=== PATIENT | female | born 1965 | race African-American/Black ===

== ENCOUNTER 2017-06-19 05:49 | Emergency (ER) | payer OTHER ==
[~2017-06-19] VITALS: Ht 165.1 cm; Wt 77.1 kg
--- NOTE | ~2017-06-19 | EKG ---
[address] [address] ELECTROCARDIOGRAM REPORT Name: EMILY HOOD [id number] Admission: 06/19/17 Attend Phys: Discharge: Date of : 65 Report #: [id number] THIS REPORT FOR: //name// [facility] ED Test Date: 2017-06-19 Test Time: 05:58:29 Pat Name: EMILY HOOD Department: Room: Gender: F Tank Truck Operator: RAJIV : 1965 Requested By: Leland Dawson Order Number: [id number] MD: Denis Ojeda Measurements Intervals [place] Rate: 75 P: 37 RI: 167 QRS: 8 QRSD: 87 T: 30 QT: 384 QTc: 429 Interpretive Statements Sinus rhythm Borderline T wave abnormalities No previous ECG available for comparison Electronically Signed On 06-19-2017 7:48:52 TUMBLING AND ROLLING SUPERVISOR by Denis Ojeda [email or web address] <ELECTRONICALLY SIGNED> By: Denis Ojeda MD 06/19/17 0748 0558 0558 Denis Ojeda MD /EPI
[2017-06-19] MEDS ORDERED: BENICAR40 MG PO (06:02)
[2017-06-19] MEDS ORDERED: PROTONIX 20 MG20 M1 PO (06:02)
[2017-06-19] MEDS ORDERED: MULTIVITAMINS1 EAC7 PO (06:02)
[2017-06-19] MEDS ORDERED: IBUPROFEN 200200 M1 PO (06:03)
[2017-06-19] MEDS ORDERED: LORAZEPAM 22 MG/1 ML PO (06:03)
[2017-06-19] MEDS ORDERED: ACCUNEB SO1.25 MG/1 (06:04)
[2017-06-19 06:25] LABS: BASOPHILS 0.6 % (0.0-2.0); EOSINOPHILS 3.4 % (0.0-3.0); HEMATOCRIT 42.5 % (37.0-47.0); HEMOGLOBIN 14.9 gm/dL (12.0-15.0); LYMPHOCYTES 28.1 % (24.0-44.0); MCH 31.9 pg (26.0-34.0); MCHC 35.1 g/dL (28.0-37.0); MCV 90.8 fL (80.0-100.0); MONOCYTES 9.3 % (1.0-8.0); PLATELET COUNT 236 thou/uL (150-400); POLYS 58.6 % (36.0-66.0); RBC 4.68 mil/uL (4.20-5.00); RDW 13.4 % (10.5-14.5); WBC 8.6 thou/uL (4.0-11.0)
[2017-06-19 06:32] LABS: ANION GAP 10 mmol/L (7-16); BUN 15 mg/dL (7-18); CALCIUM 9.8 mg/dL (8.5-10.1); CHLORIDE 104 mmol/L (98-107); CO2 26 mmol/L (21-32); CREATININE 0.9 mg/dL (0.6-1.0); GLUCOSE 111 mg/dL (74-106); POTASSIUM 3.4 mmol/L (3.5-5.1); SODIUM 140 mmol/L (136-145)
[2017-06-19 06:41] LABS: ALBUMIN 4.2 g/dL (3.4-5.0); DIRECT BILIRUBIN 0.1 mg/dL (<0.1-0.3); LIPASE 103 U/L (73-393); SGOT 18 U/L (15-37); SGPT 36 U/L (30-65); TOTAL BILIRUBIN 0.7 mg/dL (<0.1-1.0); TOTAL PROTEIN 7.6 g/dL (6.4-8.2); TROPONIN-I < 0.04 ng/mL (<0.06)
[2017-06-19 09:11] VITALS: BP 126/76
== END 2017-06-19 09:15 | disposition home or self-care (01) ==
LOC: ER 05:49
PROVIDERS: Emergency Medicine
DX: R07.89 Other chest pain (principal); R19.7 Diarrhea, unspecified; I10 Essential (primary) hypertension; J45.909 Unspecified asthma, uncomplicated; F17.210 Nicotine dependence, cigarettes, uncomplicated; Z88.5 Allergy status to narcotic agent

== ENCOUNTER 2017-07-06 09:22 | Inpatient (IN) | payer BC ==
[~2017-07-06] VITALS: Ht 165.1 cm; Wt 85.7 kg
--- NOTE | ~2017-07-06 | HC ---
[facility] [place] [address] [place] [address] CONSULTATION Name: EMILY HOOD Room #: 205-P ADM IN M.R.#: [id number] Admission: 07/06/17 Attend Phys: Sandra Silva Discharge: Date of : 65 Report #: [id number] THIS REPORT FOR: //name// CC: FAM unknown Sandra Silva REASON FOR CONSULTATION: I was asked to evaluate concerning persistent fever, cough and pulmonary infiltrates. HISTORY OF PRESENT ILLNESS: The patient is a 51-year-old with underlying history of hypertension, asthma. She is a smoker of cigarettes. 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 Six days ago developed acute onset of fever, chills, headache, myalgias, arthralgias and cough. Later associated this with nausea, vomiting and diarrhea. Presents on 07/06/2017 with the above complaints. In addition, had some chest pain, paresthesias to her left arm and leg. She has had fever up to 102 degrees. Cough has been minimally productive. Oxygen saturation on 3 liters has been in the high 80s. She has been receiving breathing treatments. She was placed on ceftriaxone and metronidazole. Yesterday was placed on Tamiflu. Her coworkers have been without specific illness. Her has been without illness. She had no travel outside the [place]. No animal exposure. Influenza vaccination up to date. PAST MEDICAL HISTORY: Asthma, hypertension, hysterectomy with oophorectomy, anxiety, lumbar spine surgery. ALLERGIES: CODEINE. MEDICATIONS: As noted on her MAR. She was on Benicar, Protonix, multivitamin, ibuprofen, lorazepam and albuterol prior to her admission. Subsequently, she has been on metronidazole for 1 day, ceftriaxone and now Tamiflu. FAMILY HISTORY: Noncontributory. SOCIAL HISTORY: Smoker of cigarettes, minimal alcohol intake, no HIV risks. No tuberculosis exposure noted. 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 REVIEW OF SYSTEMS: No rash, arthritis symptoms. Her headache has improved. Paresthesias are improved. No further diarrhea. Appetite has been fair. No dysuria or frequency. PHYSICAL EXAMINATION: VITAL SIGNS: She had maximum temperature earlier today of 39.6, currently afebrile, hemodynamically stable. Oxygen saturation on 3 liters was 88%. GENERAL: She is alert and cooperative. A bit weak when trying to sit up in bed. SKIN: Unremarkable. [facility] [address] [place] [address] CONSULTATION Name: EMILY HOOD Room #: 205-P [facility] IN M.R.#: [id number] Admission: 07/06/17 Attend Phys: Sandra Berger Estephania Discharge: Date of : 65 Report #: [id number] LYMPH: Unremarkable. HEENT: Unremarkable. NECK: Supple. She was fatigued in appearance. LUNGS: A few crackles in the right mid posterior chest. HEART: Regular, without murmur. ABDOMEN: Soft. She had mild tenderness in their upper abdomen bilaterally. No mass or hepatosplenomegaly. EXTREMITIES: Unremarkable. NEUROLOGIC: Nonfocal. LABORATORY STUDIES: Sodium 143, potassium 3.6, bicarbonate 29, creatinine 0.9. Liver function test normal. Drug screen ____ benzodiazepines and opiates. Hemoglobin 14.4, platelet count 236,000, white count 7.9 with 51% segs, 36% lymphs, 6% monocytes and 4% eosinophils. Urinalysis was unremarkable. Urine culture did show E. coli pansensitive. Influenza antigen was negative. Blood cultures were negative to date. Initial chest x-ray was clear. A repeat CT scan yesterday showed right middle lobe infiltrate and some associated adenopathy. CT scan on admission was unremarkable. MRI scan of the head was unremarkable. IMPRESSION: A 51-year-old with underlying asthma with acute febrile illness. A right middle lobe pneumonia. I suspect influenza at the onset. Has bacterial pneumonia at this time. Exacerbation of her asthma. PLAN: Would recommend continuing Tamiflu and broaden her antibiotic coverage to include Staph aureus and atypicals. She will have viral respiratory panel obtained, sputum culture, urine antigens, HIV testing. In addition, we will continue with respiratory treatments and add prednisone. <ELECTRONICALLY SIGNED> By: Manuel Gutierrez MD 07/10/17 1808 0907 1137 Manuel Gutierrez MD /nt
--- NOTE | ~2017-07-06 | EKG ---
[address] [place] [address] ELECTROCARDIOGRAM REPORT Name: EMILY HOOD Room #: 205-P ADM IN M.R.#: [id number] Admission: 07/06/17 Attend Phys: Sandra Silva Discharge: Date of : 65 Report #: [id number] THIS REPORT FOR: //name// [facility] Test Date: 2017-07-06 Test Time: 18:38:42 Pat Name: EMILY HOOD Department: Room: 205 P Gender: F Kitchen Supervisor: Leonardo MALIK : 1965 Requested By: Debbie Wolff Order Number: [id number] MD: Solitario Rudolph Measurements Intervals [place] Rate: 62 P: 47 VT: 177 QRS: 22 QRSD: 91 T: 39 QT: 423 QTc: 430 Interpretive Statements Sinus rhythm No significant abnormality Compared to ECG 06/19/2017 05:58:29 T-wave abnormality no longer present Electronically Signed On 07-09-2017 7:17:34 INFORMATION DEVELOPER by Solitario Rudolph [email or web address] <ELECTRONICALLY SIGNED> By: Solitario Rudolph MD, [facility] 07/09/17 0717 37 37 Solitario Rudolph MD, [facility] /EPI
--- NOTE | ~2017-07-06 | HC ---
[facility] [place] [address] [place] [address] CONSULTATION Name: EMILY HOOD Room #: 205-P ADM IN M.R.#: [id number] Admission: 07/06/17 Attend Phys: Sandra Silva Discharge: Date of : 65 Report #: [id number] THIS REPORT FOR: //name// CC: FAM unknown Sandra Silva TYPE OF REPORT: Pulmonary consultation. PRIMARY CARE PHYSICIAN: At [facility]. REFERRAL PHYSICIAN: Lucie Christianson M.D. REASON FOR REFERRAL: Hypoxia. HISTORY OF PRESENT ILLNESS: The patient is a 51-year-old white female who was admitted on 07/06/2017 with complaints of abdominal pain, weakness, atypical chest pain. She was subsequently found to have influenza. She has asthma. Over the last several days, she has been more hypoxic. A pulmonary consultation was requested. The patient states that she has not seen a polysomnograph tech in the past. She has been getting her care at [facility]. She states that she has been told that she had asthma for some time. Her main complaint today is that she just quite weak and short of breath. Otherwise, denies any chest pain, nausea, vomiting or diarrhea. In reviewing the records, she appears to be being on her Valium for her anxiety disorder. She is on Valium 10 mg 3 times a day. PAST MEDICAL HISTORY: Notable for asthma, hypertension, tobacco abuse, smoking less than a pack a day. PAST SURGICAL HISTORY: Include left oophorectomy due to hemorrhage and right oophorectomy recently. ALLERGIES: CODEINE, which causes hives. CURRENT MEDICATIONS: Lists are reviewed in the MAR. FAMILY HISTORY: Noncontributory. SOCIAL HISTORY: Tobacco history: As mentioned above. She drinks occasional alcohol. 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 REVIEW OF SYSTEMS: Notable for profound weakness and dyspnea. Otherwise, 10-point system review negative. [facility] [address] [place] [address] CONSULTATION Name: EMILY HOOD Room #: 205-P [facility] IN .R.#: [id number] Admission: 07/06/17 Attend Phys: Sandra Silva Discharge: Date of : 65 Report #: [id number] PHYSICAL EXAMINATION: GENERAL: She is awake, alert, appears to be in mild distress due to weakness. VITAL SIGNS: Temperature is 98.7 degrees Fahrenheit, pulse is 60, respiratory rate is 18, blood pressure is 150/64 mmHg and saturation is 94%. HEENT: Normocephalic and atraumatic. NECK: Supple, without any lymphadenopathy or thyromegaly. CHEST: Breath sounds are decreased bilaterally with idfx-ql-wraxfohs bilateral wheezes. Few scattered crackles heard in the bases. CARDIOVASCULAR: Normal S1 and S2. There are no murmurs or gallop. There is no JVD. There is no carotid bruit. Pulses are 2+/4+ bilaterally. ABDOMEN: Soft and nontender. No organomegaly or masses felt. She is moderately obese. GENITOURINARY: Deferred. RECTAL: Deferred. EXTREMITIES: There is no edema, cyanosis or clubbing. RADIOLOGICAL DATA: Chest x-ray was grossly unremarkable except for questionable left lower lobe infiltrates. LABORATORY DATA: Electrolytes are normal. Liver function tests are normal. WBC 7800, hemoglobin 12.9 and platelets are normal. No evidence of bandemia. IMPRESSION: 1. Progressive hypoxia in this 51-year-old -[place] female. Etiology is probably related to exacerbation of chronic obstructive pulmonary disease with possible pneumonia. 2. Influenza A. 3. Profound weakness due to above. There is likely a component to her dyspnea and hypoxia. 4. Tobacco abuse. 5. Atypical chest pain related to influenza. Some of this may be related to exacerbation of asthma. RECOMMENDATION: We would suggest increasing the corticosteroids. Continue bronchodilators. Continue antibiotics per Infectious Disease. DVT and GI prophylaxis will be addressed. Note that recent CT chest angiogram performed on 07/08/2017 was negative for pulmonary embolus. There were focal infiltrates seen in the right middle lobe with mildly enlarged paratracheal lymph nodes. Thank you for this consultation. <ELECTRONICALLY SIGNED> By: Musa Garay MD 07/14/17 1941 1747 0123 Musa Garay MD /nt
--- NOTE | ~2017-07-06 | EKG ---
[address] [place] [address] ELECTROCARDIOGRAM REPORT Name: EMILY HOOD Room #: 205-P ADM IN M.R.#: [id number] Admission: 07/06/17 Attend Phys: Sandra Silva Discharge: Date of : 65 Report #: [id number] THIS REPORT FOR: //name// [facility] ED Test Date: 2017-07-06 Test Time: 09:17:20 Pat Name: EMILY HOOD Department: Room: 205 Gender: F Filler Blender: [facility] : 1965 Requested By: Sandra Silva Order Number: [id number] MD: Solitario Rudolph Measurements Intervals [place] Rate: 82 P: 48 AR: 158 QRS: 14 QRSD: 91 T: 54 QT: 379 QTc: 443 Interpretive Statements Sinus rhythm Nonspecific ST and T wave abnormality Compared to ECG 06/19/2017 05:58:29 No significant changes Electronically Signed On 07-09-2017 7:12:20 QUALITY ENGINEER MEDICAL DEVICE by Solitario Rudolph [email or web address] <ELECTRONICALLY SIGNED> By: Solitario Rudolph MD, [facility] 07/09/17711 6 6 Solitario Rudolph MD, [facility] /EPI
--- NOTE | ~2017-07-06 | D ---
[facility] [place] [address] [place] [address] DISCHARGE SUMMARY Name: EMILY HOOD Room #: 205-P [facility] IN M.R.#: [id number] Admission: 07/06/17 Attend Phys: Sandra Silva Discharge: 07/16/17 Date of : 65 Report #: [id number] THIS REPORT FOR: //name// CC: FAM unknown Sandra Silva DATE OF SERVICE: 07/16/2017 The patient was admitted to the hospital on 07/06/2017, discharged from the hospital on 07/16/2017. HISTORY OF PRESENT ILLNESS: The patient is a 51-year-old female with history of COPD, who came to the hospital with midsternal chest pain and progressively worsening shortness of breath. The patient has history of asthma, as well as she is current smoker. Please refer to admission H and P for details. HOSPITALIZATION COURSE: The patient was hospitalized for atypical chest pain, asthma, suspected asthma exacerbation. Later during the hospital stay, the patient developed fever and myalgias. Influenza was suspected. Although initial test was negative, later diagnosis was confirmed. Infectious Disease was involved, and the patient was treated with Tamiflu. The patient also had chest CT scan that showed bilateral infiltrates. The patient has been treated with antibiotics. Her condition improved significantly, but later during the hospital stay she became hypoxic again. She required supplemental oxygen. Outside Plant Field Engineer was consulted. Steroid dose was increased, and the patient was treated with more aggressive bronchodilator regimen. The patient's condition improved. Currently, the patient is on room air. The patient also had other issues as well. Initially, the patient reported left arm weakness on admission. MRI of the brain was negative and Neurology evaluated the patient. Weakness has resolved, neurologist has signed off. She also had diarrhea on admission that has resolved. Urinalysis was consistent with E. coli that has been covered with Rocephin that the patient was getting. The patient also had aches and pains, requiring narcotics, which was related to cough and myalgias. Currently, the patient is on room air. She has mild wheezing. As noted, the patient has asthma, as well as she is a current smoker. She is not short of breath. The patient will be discharged home. She is strongly advised to quit smoking cigarettes. She will be discharged home on oral antibiotics. She is currently on cefdinir per ID recommendations. That will be continued. DISCHARGE DIAGNOSES: 1. Influenza A, completed Tamiflu. [address] [address] DISCHARGE SUMMARY Name: EMILY HOOD Room #: 205-P DIS IN M.R.#: [id number] Admission: 07/06/17 Attend Phys: Sandra Silva Discharge: 07/16/17 Date of : 65 Report #: [id number] 2. Bilateral pneumonia, resolving. 3. Hypoxemic respiratory failure due to above, resolved. 4. Asthma/chronic obstructive pulmonary disease exacerbation, resolved. 5. Tobaccoism. 6. Pleuritic chest pain and abdominal muscle pain due to cough, resolved. 7. Urinary tract infection due to Escherichia coli, treated with Rocephin. 8. Left arm weakness on admission, resolved. Negative MRI of the brain and negative neurologic evaluation. 9. Tobaccoism. 10. Hypertension. 11. Left hip pain during the admission. No abnormalities on the x-ray. The patient likely has degenerative joint disease. DISPOSITION: The patient is discharged home. FOLLOWUP PLAN: Follow up with the primary care physician in 1 week. I spent greater than 30 minutes to coordinate the patient's discharge from the hospital. <ELECTRONICALLY SIGNED> By: Lucie Christianson MD 07/16/17 1906 0925 0948 Lucie Christianson MD /nt
[~2017-07-06 09:22] MED LIST: ACCUNEB SO1.25 MG/1; BENICAR40 MG PO; IBUPROFEN 200200 M1 PO; LORAZEPAM 22 MG/1 ML PO; MULTIVITAMINS1 EAC7 PO; PROTONIX 20 MG20 M1 PO
[2017-07-06 09:34] LABS: ABSOLUTE NEUTROPHILS 4.1 thou/uL (1.4-8.2); BASOPHILS 0.7 % (0.0-2.0); EOSINOPHILS 4.1 % (0.0-3.0); HEMATOCRIT 41.5 % (37.0-47.0); HEMOGLOBIN 14.4 gm/dL (12.0-15.0); LYMPHOCYTES 36.6 % (24.0-44.0); MCH 31.5 pg (26.0-34.0); MCHC 34.8 g/dL (28.0-37.0); MCV 90.4 fL (80.0-100.0); MONOCYTES 6.7 % (1.0-8.0); PLATELET COUNT 236 thou/uL (150-400); POLYS 51.9 % (36.0-66.0); RBC 4.59 mil/uL (4.20-5.00); RDW 12.8 % (10.5-14.5); WBC 7.9 thou/uL (4.0-11.0)
[2017-07-06 09:41] VITALS: BP 140/84
[2017-07-06 09:41] LABS: ANION GAP 9 mmol/L (7-16); BUN 13 mg/dL (7-18); CHLORIDE 105 mmol/L (98-107); CO2 29 mmol/L (21-32); CREATININE 0.9 mg/dL (0.6-1.0); GLUCOSE 113 mg/dL (74-106); POTASSIUM 3.6 mmol/L (3.5-5.1); SODIUM 143 mmol/L (136-145)
[2017-07-06 09:50] LABS: ALBUMIN 4.2 g/dL (3.4-5.0); SGOT 23 U/L (15-37); SGPT 37 U/L (30-65); TOTAL BILIRUBIN 0.7 mg/dL (<0.1-1.0); TOTAL PROTEIN 7.5 g/dL (6.4-8.2); TROPONIN-I < 0.04 ng/mL (<0.06)
[2017-07-06 11:32] VITALS: BP 140/84
[2017-07-06 11:58] VITALS: BP 154/55
[2017-07-06 12:18] VITALS: BP 150/82
[2017-07-06 13:23] LABS: CHOLESTEROL 205 mg/dL (<200); HDL CHOLESTEROL 34 mg/dL (>40); LDL CHOLESTEROL 113 mg/dL (<100); TRIGLYCERIDE 293 mg/dL (<150); VLDL 59 mg/dL (<40)
[2017-07-06 13:49] LABS: TSH 1.004 uIU/mL (0.358-3.740)
[2017-07-06 16:17] LABS: URINE BILIRUBIN NEGATIVE (Negative); URINE BLOOD TRACE (Negative); URINE CLARITY CLEAR; URINE COLOR YELLOW; URINE GLUCOSE-RANDOM* NEGATIVE (Negative); URINE KETONES NEGATIVE (Negative); URINE LEUKOCYTES NEGATIVE (Negative); URINE NITRITE POSITIVE (Negative); URINE PROTEIN (DIPSTICK) NEGATIVE (Negative); URINE UROBILINOGEN 0.2 E.U./dl (0.2-1.0)
[2017-07-06 16:23] LABS: BACTERIA 1-9 Few /HPF (None Seen); CASTS None Seen /LPF (None Seen); SQUAMOUS 0-3 Few /LPF (0-3); URINE RBC 0-2 Rare /HPF (0-2); URINE WBC None Seen /HPF (0-5)
[2017-07-06 16:24] LABS: CRYSTALS None Seen /LPF (None Seen)
[2017-07-06 16:26] LABS: AMP/METHAMP Negative (Negative); BARBITURATES Negative (Negative); BENZODIAZEPINES POSITIVE (Negative); COCAINE Negative (Negative); METHADONE Negative (Negative); OPIATES POSITIVE (Negative); PCP Negative (Negative)
[2017-07-06 19:41] VITALS: BP 129/75
[2017-07-07 05:35] VITALS: BP 101/53
[2017-07-07 08:00] VITALS: BP 123/68
[2017-07-07 16:00] VITALS: BP 140/65
[2017-07-07 19:41] VITALS: BP 150/68
[2017-07-08 04:45] VITALS: BP 150/76
[2017-07-08 08:45] VITALS: BP 186/89
[2017-07-08 14:33] VITALS: BP 173/82
[2017-07-08 19:46] VITALS: BP 152/88
[2017-07-08 23:29] VITALS: BP 137/74
[2017-07-09 03:20] VITALS: BP 157/85
[2017-07-09 07:44] VITALS: BP 160/80
[2017-07-09 15:16] LABS: ABSOLUTE NEUTROPHILS 4.1 thou/uL (1.4-8.2); BASOPHILS 0.1 % (0.0-2.0); EOSINOPHILS 0.1 % (0.0-3.0); HEMATOCRIT 38.2 % (37.0-47.0); HEMOGLOBIN 13.3 gm/dL (12.0-15.0); LYMPHOCYTES 10.2 % (24.0-44.0); MCH 31.4 pg (26.0-34.0); MCHC 34.7 g/dL (28.0-37.0); MCV 90.4 fL (80.0-100.0); MONOCYTES 4.6 % (1.0-8.0); PLATELET COUNT 148 thou/uL (150-400); RBC 4.22 mil/uL (4.20-5.00); RDW 12.5 % (10.5-14.5); WBC 4.9 thou/uL (4.0-11.0)
[2017-07-09 15:23] LABS: CALCIUM 9.2 mg/dL (8.5-10.1); MAGNESIUM 2.1 mg/dL (1.8-2.4)
[2017-07-09 16:00] VITALS: BP 157/82
[2017-07-09 19:35] VITALS: BP 147/86
[2017-07-10 03:52] VITALS: BP 152/93
[2017-07-10 08:57] VITALS: BP 136/64
[2017-07-10 10:08] LABS: HIV ANTIBODY Non Reactive (Non Reactive)
[2017-07-10 12:00] VITALS: BP 152/83
[2017-07-10 15:58] VITALS: BP 142/67
[2017-07-10 19:27] VITALS: BP 154/83
[2017-07-11 03:53] VITALS: BP 181/97
[2017-07-11 08:00] VITALS: BP 168/88
[2017-07-11 12:00] VITALS: BP 181/83
[2017-07-11 16:00] VITALS: BP 166/91
[2017-07-11 20:15] VITALS: BP 173/82
[2017-07-12 00:41] VITALS: BP 143/93
[2017-07-12 01:06] LABS: ADENOVIRUS Negative (Negative); INFLUENZA A Positive (Negative); INFLUENZA B Negative (Negative); METAPNEUMOVIRUS Negative (Negative); PARAINFLUENZA 1 Negative (Negative); PARAINFLUENZA 2 Negative (Negative); PARAINFLUENZA 3 Negative (Negative); RHINOVIRUS Negative (Negative); RSV A Negative (Negative); RSV B Negative (Negative)
[2017-07-12 05:50] VITALS: BP 153/77
[2017-07-12 07:33] VITALS: BP 171/88
[2017-07-12 15:50] VITALS: BP 171/89
[2017-07-12 17:38] VITALS: BP 165/79
[2017-07-12 20:07] VITALS: BP 154/82
[2017-07-13 04:46] LABS: ABSOLUTE NEUTROPHILS 6.5 thou/uL (1.4-8.2); BASOPHILS 0.1 % (0.0-2.0); HEMATOCRIT 37.3 % (37.0-47.0); HEMOGLOBIN 12.9 gm/dL (12.0-15.0); LYMPHOCYTES 12.1 % (24.0-44.0); MCH 31.4 pg (26.0-34.0); MCHC 34.5 g/dL (28.0-37.0); MCV 90.9 fL (80.0-100.0); MONOCYTES 4.8 % (1.0-8.0); PLATELET COUNT 171 thou/uL (150-400); RBC 4.11 mil/uL (4.20-5.00); WBC 7.8 thou/uL (4.0-11.0)
[2017-07-13 04:57] VITALS: BP 160/85
[2017-07-13 05:12] LABS: CALCIUM 9.2 mg/dL (8.5-10.1); CREATININE 0.8 mg/dL (0.6-1.0)
[2017-07-13 07:41] VITALS: BP 167/84
[2017-07-13 13:40] VITALS: BP 119/57
[2017-07-13 16:46] VITALS: BP 150/64
[2017-07-13 21:40] VITALS: BP 166/77
[2017-07-14 04:21] VITALS: BP 179/99
[2017-07-14 05:51] LABS: ABSOLUTE NEUTROPHILS 9.7 thou/uL (1.4-8.2); BASOPHILS 0.1 % (0.0-2.0); HEMATOCRIT 38.1 % (37.0-47.0); HEMOGLOBIN 12.9 gm/dL (12.0-15.0); LYMPHOCYTES 9.5 % (24.0-44.0); MCHC 33.9 g/dL (28.0-37.0); MCV 91.5 fL (80.0-100.0); MONOCYTES 3.5 % (1.0-8.0); PLATELET COUNT 198 thou/uL (150-400); POLYS 86.9 % (36.0-66.0); RBC 4.16 mil/uL (4.20-5.00); RDW 12.6 % (10.5-14.5); WBC 11.2 thou/uL (4.0-11.0)
[2017-07-14 06:06] LABS: CALCIUM 9.1 mg/dL (8.5-10.1); CREATININE 0.9 mg/dL (0.6-1.0)
[2017-07-14 08:21] VITALS: BP 188/87
[2017-07-14 15:14] VITALS: BP 176/87
[2017-07-14 20:10] VITALS: BP 179/78
[2017-07-15 04:24] VITALS: BP 165/79
[2017-07-15 05:03] LABS: HEMATOCRIT 37.2 % (37.0-47.0); HEMOGLOBIN 12.6 gm/dL (12.0-15.0); MCH 30.8 pg (26.0-34.0); MCV 90.7 fL (80.0-100.0); RBC 4.1 mil/uL (4.20-5.00); RDW 12.5 % (10.5-14.5); WBC 11.8 thou/uL (4.0-11.0)
[2017-07-15 05:16] LABS: CREATININE 0.8 mg/dL (0.6-1.0); PHOSPHORUS 3.3 mg/dL (2.5-4.9); POTASSIUM 3.6 mmol/L (3.5-5.1)
[2017-07-15 08:45] VITALS: BP 180/89
[2017-07-15 11:10] VITALS: BP 149/85
[2017-07-15 15:55] VITALS: BP 142/71
[2017-07-15 20:00] VITALS: BP 150/77
[2017-07-16 03:58] VITALS: BP 155/81
[2017-07-16 04:18] LABS: HEMATOCRIT 35.9 % (37.0-47.0); HEMOGLOBIN 12.3 gm/dL (12.0-15.0); MCH 31.6 pg (26.0-34.0); MCHC 34.3 g/dL (28.0-37.0); MCV 91.9 fL (80.0-100.0); RBC 3.91 mil/uL (4.20-5.00); RDW 12.8 % (10.5-14.5); WBC 9.5 thou/uL (4.0-11.0)
[2017-07-16 04:35] LABS: ALBUMIN 2.8 g/dL (3.4-5.0); CALCIUM 8.5 mg/dL (8.5-10.1); CREATININE 0.9 mg/dL (0.6-1.0); POTASSIUM 3.4 mmol/L (3.5-5.1); TOTAL BILIRUBIN 0.4 mg/dL (<0.1-1.0); TOTAL PROTEIN 5.9 g/dL (6.4-8.2)
[2017-07-16 08:00] VITALS: BP 141/72
[2017-07-16] MEDS ORDERED: CEFDINIR300 MG PO (09:31)
[2017-07-16] MEDS ORDERED: PREDNISONE 10 M10 MG PO (09:31)
[2017-07-16] MEDS ORDERED: ONDANSETRON HCL4 M2 PO (09:31)
[2017-07-16] MEDS ORDERED: ATIVAN0.5 MG PO (09:31)
[2017-07-16] MEDS ORDERED: NORCO 7.5-3251 EACH PO (09:31)
[2017-07-16] MEDS ORDERED: BENZONATATE100 MG PO (09:31)
[2017-07-16] MEDS ORDERED: SINGULAIR 10 MG10 M1 PO (09:31)
[2017-07-16 14:30] VITALS: BP 141/72
[2017-07-16] MEDS ORDERED: PREDNISONE 20 M20 MG PO (14:45)
== END 2017-07-16 15:15 | disposition home or self-care (01) | DRG 193 ==
LOC: ER 09:22 → 2N 10:56 → EROBS 10:56 → 2N 12:01 → ENTRNSPT 07-16 15:08 → EDTRNSPTSTS 07-16 15:11 → 2N 07-16 15:15
PROVIDERS: Hospitalist; Internal Medicine Endocrinology, Diabetes & Metabolism; Internal Medicine Pulmonary Disease; Nurse Practitioner; Physician Assistant; Specialist
PROC: 05HY33Z Insertion of Infusion Device into Upper Vein, Percutaneous Approach (ICD-10-PCS; principal; 2017-07-09)
DX: J10.08 Influenza due to other identified influenza virus with other specified pneumonia (principal); J96.01 Acute respiratory failure with hypoxia; N39.0 Urinary tract infection, site not specified; A04.72 Enterocolitis due to Clostridium difficile, not specified as recurrent; J15.9 Unspecified bacterial pneumonia; I10 Essential (primary) hypertension; J45.901 Unspecified asthma with (acute) exacerbation; E78.00 Pure hypercholesterolemia, unspecified; M25.552 Pain in left hip; J44.0 Chronic obstructive pulmonary disease with (acute) lower respiratory infection; J44.1 Chronic obstructive pulmonary disease with (acute) exacerbation; E66.09 Other obesity due to excess calories; F41.9 Anxiety disorder, unspecified; F44.9 Dissociative and conversion disorder, unspecified; B96.20 Unspecified Escherichia coli [E. coli] as the cause of diseases classified elsewhere; F17.210 Nicotine dependence, cigarettes, uncomplicated; Z68.31 Body mass index [BMI] 31.0-31.9, adult; Z71.6 Tobacco abuse counseling; Z90.710 Acquired absence of both cervix and uterus; Z90.722 Acquired absence of ovaries, bilateral; Z79.899 Other long term (current) drug therapy; Z88.5 Allergy status to narcotic agent
CPT/HCPCS: 10081; 27000

== ENCOUNTER 2017-07-21 08:04 | Emergency (ER) | payer BC ==
[~2017-07-21] VITALS: Ht 165.1 cm; Wt 79.4 kg
--- NOTE | ~2017-07-21 | EKG ---
[place] [address] [facility] [place] [address] ELECTROCARDIOGRAM REPORT Name: EMILY HOOD Room #: DEP Dora#: [id number] Admission: 07/21/17 Attend Phys: Discharge: 07/21/17 Date of : 65 Report #: [id number] THIS REPORT FOR: //name// [facility] ED Test Date: 2017-07-21 Test Time: 09:55:08 Pat Name: EMILY HOOD Department: Room: Gender: F Veterans' Counselor: Aram HANKS : 1965 Requested By: Danny Del Valle Order Number: [id number] MD: Henry Gibbs Measurements Intervals [place] Rate: 59 P: 44 [place]: 152 QRS: 7 QRSD: 87 T: 48 QT: 407 QTc: 404 Interpretive Statements Sinus rhythm Borderline T wave abnormalities Compared to ECG 07/06/2017 18:38:42 T-wave abnormality now present Electronically Signed On 07-21-2017 12:26:17 LANDSCAPE CREW MEMBER by Henry Gibbs [email or web address] <ELECTRONICALLY SIGNED> By: Henry Gibbs MD 07/21/17 1226 0955 0955 Henry Gibbs MD /EDVIN
[~2017-07-21 08:04] MED LIST changes: +ATIVAN0.5 MG PO; +BENZONATATE100 MG PO; +CEFDINIR300 MG PO; +NORCO 7.5-3251 EACH PO; +ONDANSETRON HCL4 M2 PO; +PREDNISONE 10 M10 MG PO; +PREDNISONE 20 M20 MG PO; +SINGULAIR 10 MG10 M1 PO
[2017-07-21] MEDS ORDERED: TRAZODONE 150150 M1 PO (09:00)
[2017-07-21] MEDS ORDERED: HYDROCHLOROTH12.5 M1 PO (09:01)
[2017-07-21 09:46] LABS: HEMATOCRIT 40.8 % (37.0-47.0); HEMOGLOBIN 14.2 gm/dL (12.0-15.0); MCH 31.4 pg (26.0-34.0); MCHC 34.8 g/dL (28.0-37.0); MCV 90.1 fL (80.0-100.0); RBC 4.53 mil/uL (4.20-5.00); RDW 12.7 % (10.5-14.5); WBC 8.8 thou/uL (4.0-11.0)
[2017-07-21 09:52] LABS: ANION GAP 8 mmol/L (7-16); BUN 12 mg/dL (7-18); CALCIUM 9.9 mg/dL (8.5-10.1); CHLORIDE 107 mmol/L (98-107); CO2 27 mmol/L (21-32); CREATININE 0.9 mg/dL (0.6-1.0); GLUCOSE 105 mg/dL (74-106); POTASSIUM 3.9 mmol/L (3.5-5.1); SODIUM 142 mmol/L (136-145)
[2017-07-21 09:57] LABS: ALBUMIN 3.8 g/dL (3.4-5.0); SGOT 18 U/L (15-37); SGPT 58 U/L (30-65); TOTAL BILIRUBIN 0.5 mg/dL (<0.1-1.0); TOTAL PROTEIN 7.4 g/dL (6.4-8.2); TROPONIN-I < 0.04 ng/mL (<0.06)
[2017-07-21 11:36] VITALS: BP 121/67
== END 2017-07-21 11:36 | disposition home or self-care (01) ==
LOC: ER 08:04
PROVIDERS: Emergency Medicine
DX: J98.8 Other specified respiratory disorders (principal); I10 Essential (primary) hypertension; J45.909 Unspecified asthma, uncomplicated; F17.210 Nicotine dependence, cigarettes, uncomplicated; Z88.5 Allergy status to narcotic agent

== ENCOUNTER 2017-07-25 09:59 | Inpatient (IN) | payer BC ==
[~2017-07-25] VITALS: Ht 167.6 cm
--- NOTE | ~2017-07-25 | HC ---
[facility] [place] [address] [address] CONSULTATION Name: EMILY HOOD Room #: 356-P ADM IN M.R.#: [id number] Admission: 07/25/17 Attend Phys: Boubacar Hutchison DO Discharge: Date of : 65 Report #: [id number] THIS REPORT FOR: //name// CC: Boubacar De Santiagorobe Ontiveroson DATE OF SERVICE: 07/25/2017 HISTORY OF PRESENT ILLNESS: This is a 51-year-old female patient who was seen by me at the request of Dr. Castellano from Emergency Room. This patient was admitted with weakness on the left side. Her symptoms were pretty unusual. We reviewed the records from the hospital and it looks like she was seen by Dr. Ortiz and her conclusion was that the patient had a conversion disorder. This was on 07/07/2017. She did have workup of that time and workup did include an MRI of the brain and MRA of the head and they were unremarkable. REVIEW OF SYSTEMS: Indicate that this patient indicates that she has been vomiting blood every day. She is having syncopal episode of significant amount of vomiting blood every day as per history. She is also complaining of some chest symptoms. The patient had a history of C. difficile. She also has been on multiple psychiatric medications and at one time was seen by psychiatrist and those records were reviewed. Presently, she is complaining of a lot of chest pain, which is retrosternal. She is also complaining of pain in the head, which is generalized. She did have hysterectomy in the past. That was the relevant 14-point review of system. PAST MEDICAL HISTORY: Positive for diagnosis of conversion disorder. Negative, neurology workup. FAMILY HISTORY: Negative for early age stroke. SOCIAL HISTORY: She smokes. PHYSICAL EXAMINATION: The patient was examined multiple times. She is alert. She is responsive. She moves her eyes in all directions. When I asked her to give me a big smile, she is able to move both sides of the face. She would not move the left upper and left lower extremity on command. When she is distracted, she was moving the left arm. When I put her left arm on the face, she will never hit it on the face and she will bring it back on her body or take it above the head and hit it there. Her reflexes are symmetrical. This examination was confirmed multiple times. She did have a noncontrast CT of the head, which was unremarkable. Plan was to do a CT angio, but the patient's creatinine is 3.1. [place] [address] CONSULTATION Name: EMILY HOOD Room #: 356-P [facility] IN M.R.#: [id number] Admission: 07/25/17 Attend Phys: Boubacar Hutchison DO Discharge: Date of : 65 Report #: [id number] IMPRESSION AND PLAN: I had multiple discussions with the patient as well as with Dr. Castellano. Since she has a history of multiple episodes of GI bleed in the last few days, which has not been worked up, she has a diagnosis of conversion disorder with negative workup in similar circumstances and her deficit does not fit into any definite anatomical location and has multiple features, which will tend to indicate that it is a functional. TPA was not given, although it was ordered. I did discuss with the patient her options in that regard and she is agreeable with this plan. She is very scared. She will go for an MRI and MRA again. If MRI and MRA show anything different, then we will treat accordingly. Otherwise this MRI and MRA was ordered stat and we will see what does that show. This is a very difficult patient and was discussed. Multiple times and I talked to the patient and talked to Dr. Castellano and after that we decided to follow the above plan. Thank you very much for this referral. This addendum is being added at the time of signing this note. Patient was reevaluated by me this afternoon and her examination is unchanged. I talked to admitting doctor. I talked to the nurses looking after this patient. I talked to the radiologist section repairer and she indicated that the strokes this patient had was old and there is no evidence of any new stroke. She indicated it's a chronic process. I discussed the situation with the patient. I discussed her options again. We will get an EEG done. I think she need a psychiatric consult again because she is very nervous. More than 50 minutes of time was spent taking care of this patient today and majority of that time was spent counseling this patient and coordinating her care <ELECTRONICALLY SIGNED> By: Roberto Gonzalez MD 07/25/17 1759 1123 1718 Roberto Gonzalez MD /nt
--- NOTE | ~2017-07-25 | EEG ---
[facility] [place] [address] ELECTROENCEPHALOGRAM Name: EMILY HOOD Room #: 356-P [facility] IN M.R.#: [id number] Admission: 07/25/17 Attend Phys: Boubacar Hutchison DO Discharge: 07/26/17 Date of : 65 Report #: [id number] THIS REPORT FOR: //name// CC: Boubacar De Santiagorobe Anderson DATE OF SERVICE: 07/26/2017 This patient is being evaluated for pretty unusual symptoms. EEG is being done to look for any asymmetry or seizure. Background activity in this patient's EEG is about 11 Hz and 40 microvolt. No suppression on the right side was noticed. The patient became drowsy that is associated with bilateral slowing and vertex sharp waves. Photic stimulation is unremarkable. Throughout the record, no active epileptiform activity was noticed. IMPRESSION: This patient's electroencephalogram is within normal limits. Thank you very much for this referral. <ELECTRONICALLY SIGNED> By: Roberto Gonzalez MD 08/04/17 1552 1425 1438 Roberto Gonzalez MD /nt
--- NOTE | ~2017-07-25 | EKG ---
[address] [place] [address] ELECTROCARDIOGRAM REPORT Name: EMILY HOOD Room #: 356-P ADM IN M.R.#: [id number] Admission: 07/25/17 Attend Phys: Boubacar Hutchison DO Discharge: Date of : 65 Report #: [id number] THIS REPORT FOR: //name// [facility] Test Date: 2017-07-25 Test Time: 16:26:27 Pat Name: EMILY HOOD Department: Room: 356 P Gender: F Buckle Inspector: Leonardo MALIK : 1965 Requested By: Boubacar Hutchison Order Number: [id number] MD: Solitario Rudolph Measurements Intervals [place] Rate: 62 P: 44 [place]: 164 QRS: 10 QRSD: 92 T: 37 QT: 415 QTc: 422 Interpretive Statements Sinus rhythm Nonspecific T wave abnormality Compared to ECG 07/21/2017 09:55:08 No significant change was found Electronically Signed On 07-26-2017 8:11:08 ASTRONOMY INSTRUCTOR by Solitario Rudolph [email or web address] <ELECTRONICALLY SIGNED> By: Solitario Rudolph MD, [facility] 07/26/17 0811 1626 25 Solitario Rudolph MD, [facility] /EPI
--- NOTE | ~2017-07-25 | EKG ---
[place] [address] [address] [facility] [place] [employer] [place] [address] ELECTROCARDIOGRAM REPORT Name: EMILY HOOD Room #: 356-P ADM IN M.R.#: [id number] Admission: 07/25/17 Attend Phys: Boubacar Hutchison DO Discharge: Date of : 65 Report #: [id number] THIS REPORT FOR: //name// [facility] ED Test Date: 2017-07-25 Test Time: 10:27:04 Pat Name: EMILY HOOD Department: Room: 356 Gender: F Brew House Supervisor: BRIANDA : 1965 Requested By: aLcy Castellano Order Number: [id number] MD: Solitario Rudolph Measurements Intervals [place] Rate: 88 P: 61 MS: 151 QRS: 40 QRSD: 90 T: 73 QT: 444 QTc: 538 Interpretive Statements Sinus rhythm Nonspecific ST and T wave abnormality Prolonged QT interval Compared to ECG 07/21/2017 09:55:08 No significant change was found Electronically Signed On 07-26-2017 8:02:58 SECRETARY BOOK KEEPER by Solitario Rudolph [email or web address] <ELECTRONICALLY SIGNED> By: Solitario Rudolph MD, [facility] 07/26/17 0802 Solitario Rudolph MD, [facility] /EPI
[2017-07-25 09:59] VITALS: BP 75/48
[~2017-07-25 09:59] MED LIST changes: +HYDROCHLOROTH12.5 M1 PO; +TRAZODONE 150150 M1 PO
[2017-07-25 10:13] LABS: BASOPHILS 0.4 % (0.0-2.0); EOSINOPHILS 1.1 % (0.0-3.0); HEMATOCRIT 40.5 % (37.0-47.0); HEMOGLOBIN 14.3 gm/dL (12.0-15.0); LYMPHOCYTES 36.9 % (24.0-44.0); MCH 31.5 pg (26.0-34.0); MCHC 35.4 g/dL (28.0-37.0); MCV 89.2 fL (80.0-100.0); MONOCYTES 9.5 % (1.0-8.0); PLATELET COUNT 276 thou/uL (150-400); POLYS 52.1 % (36.0-66.0); RBC 4.55 mil/uL (4.20-5.00); RDW 12.4 % (10.5-14.5); WBC 9.7 thou/uL (4.0-11.0)
[2017-07-25 10:17] LABS: POC CA IONIZED 3.8 mg/dL (4.5-5.3); POC CREATININE 3.1 mg/dL (0.6-1.3); POC HEMOGLOBIN 13.9 g/dL (12.0-15.0); POC POTASSIUM 5.3 mmol/L (3.5-5.1)
[2017-07-25 10:26] LABS: CALCIUM 9.9 mg/dL (8.5-10.1); CREATININE 3.1 mg/dL (0.6-1.0); POTASSIUM 3.2 mmol/L (3.5-5.1)
[2017-07-25 10:27] LABS: APTT 27.7 Seconds (24.5-32.8); INR 1.1; PROTIME 10.8 Seconds (9.3-11.4)
[2017-07-25 10:32] LABS: POC CREATININE 3.1 mg/dL (0.6-1.3); POC HEMOGLOBIN 13.6 g/dL (12.0-15.0); POC POTASSIUM 3.1 mmol/L (3.5-5.1)
[2017-07-25 14:09] VITALS: BP 108/66
[2017-07-25 20:30] VITALS: BP 107/65
[2017-07-25] MEDS ORDERED: ATIVAN1 MG PO (21:35)
[2017-07-25 23:20] VITALS: BP 116/51
[2017-07-26 05:15] VITALS: BP 105/60
[2017-07-26 07:06] VITALS: BP 111/68
[2017-07-26 10:01] LABS: ABSOLUTE NEUTROPHILS 1.7 thou/uL (1.4-8.2); BASOPHILS 0.6 % (0.0-2.0); EOSINOPHILS 2.6 % (0.0-3.0); HEMATOCRIT 35.8 % (37.0-47.0); HEMOGLOBIN 12.3 gm/dL (12.0-15.0); LYMPHOCYTES 50.5 % (24.0-44.0); MCH 31.4 pg (26.0-34.0); MCHC 34.3 g/dL (28.0-37.0); MCV 91.4 fL (80.0-100.0); PLATELET COUNT 185 thou/uL (150-400); POLYS 37.3 % (36.0-66.0); RBC 3.91 mil/uL (4.20-5.00); RDW 12.5 % (10.5-14.5); WBC 4.7 thou/uL (4.0-11.0)
[2017-07-26 10:19] LABS: ANION GAP 8 mmol/L (7-16); BUN 10 mg/dL (7-18); CALCIUM 9.1 mg/dL (8.5-10.1); CHLORIDE 112 mmol/L (98-107); CO2 24 mmol/L (21-32); GLUCOSE 79 mg/dL (74-106); POTASSIUM 3.8 mmol/L (3.5-5.1); SODIUM 144 mmol/L (136-145); TROPONIN-I < 0.04 ng/mL (<0.06)
[2017-07-26 10:20] LABS: CREATININE 1.1 mg/dL (0.6-1.0)
[2017-07-26] MEDS ORDERED: DIAZEPAM 10 MG10 M1 PO (18:21)
[2017-07-26] MEDS ORDERED: WORK EXCUSE (18:23)
[2017-07-26 18:34] VITALS: BP 111/68
== END 2017-07-26 18:55 | disposition home or self-care (01) | DRG 880 ==
LOC: ER 09:59 → EROBS 10:50 → 3W 10:50
PROVIDERS: Emergency Medicine; Family Medicine
DX: F44.4 Conversion disorder with motor symptom or deficit (principal); N17.9 Acute kidney failure, unspecified; I10 Essential (primary) hypertension; J45.909 Unspecified asthma, uncomplicated; F17.210 Nicotine dependence, cigarettes, uncomplicated; R07.9 Chest pain, unspecified; F41.9 Anxiety disorder, unspecified; Z88.6 Allergy status to analgesic agent
CPT/HCPCS: 10779

== ENCOUNTER → 2017-07-30 | Outpatient (CLI) | payer BC ==
[~2017-07-30] MED LIST changes: +ATIVAN1 MG PO; +BENTYL 20 MG TA20 M1 PO; +BUTALB-APAP-CA1 EACH PO; +CHILDREN'S ASPI81 M1 PO; +COLACE100 MG PO; +COZAAR 25 MG TA25 M1 PO; +DIAZEPAM 10 MG10 M1 PO; +DIAZEPAM 10 MG10 M2 PO; +FLEXERIL PO; +MOBIC15 MG PO; +NORCO 5-325 TA1 EACH PO; +OXYCODONE HCL 55 MG PO; +TOPROL XL25 MG PO; +VALIUM5 MG PO; +VENTOLIN HFA 1818 GM INH; +WORK EXCUSE; +ZOFRAN ODT4 MG PO
[2017-07-30 17:06] LABS: CALCIUM 10.4 mg/dL (8.5-10.1); POTASSIUM 3.5 mmol/L (3.5-5.1)
== END ==
LOC: LABMALL 16:38
PROVIDERS: Family Medicine
DX: N17.9 Acute kidney failure, unspecified (principal)

== ENCOUNTER 2017-08-02 11:13 | Emergency (ER) | payer BC ==
[~2017-08-02] VITALS: Ht 165.1 cm; Wt 76.2 kg
[~2017-08-02 11:13] MED LIST changes: -BENTYL 20 MG TA20 M1 PO; -BUTALB-APAP-CA1 EACH PO; -CHILDREN'S ASPI81 M1 PO; -COLACE100 MG PO; -COZAAR 25 MG TA25 M1 PO; -DIAZEPAM 10 MG10 M2 PO; -FLEXERIL PO; -MOBIC15 MG PO; -NORCO 5-325 TA1 EACH PO; -OXYCODONE HCL 55 MG PO; -TOPROL XL25 MG PO; -VALIUM5 MG PO; -VENTOLIN HFA 1818 GM INH; -ZOFRAN ODT4 MG PO
[2017-08-02 12:46] LABS: CALCIUM 9.7 mg/dL (8.5-10.1); POTASSIUM 3.3 mmol/L (3.5-5.1)
[2017-08-02 12:48] LABS: ABSOLUTE NEUTROPHILS 2.3 thou/uL (1.4-8.2); BASOPHILS 0.6 % (0.0-2.0); EOSINOPHILS 5.6 % (0.0-3.0); HEMATOCRIT 37.4 % (37.0-47.0); LYMPHOCYTES 35.1 % (24.0-44.0); MCH 31.1 pg (26.0-34.0); MCHC 34.7 g/dL (28.0-37.0); MCV 89.6 fL (80.0-100.0); MONOCYTES 11.6 % (1.0-8.0); PLATELET COUNT 198 thou/uL (150-400); POLYS 47.1 % (36.0-66.0); RBC 4.17 mil/uL (4.20-5.00); RDW 12.8 % (10.5-14.5)
[2017-08-02 12:55] LABS: DIRECT BILIRUBIN 0.1 mg/dL (<0.1-0.3); TOTAL BILIRUBIN 0.7 mg/dL (<0.1-1.0); TOTAL PROTEIN 7.3 g/dL (6.4-8.2)
[2017-08-02] MEDS ORDERED: ZOFRAN ODT4 MG PO (13:58)
[2017-08-02] MEDS ORDERED: BENTYL 20 MG TA20 M1 PO (13:58)
[2017-08-02 14:09] VITALS: BP 137/79
[2017-08-02 14:20] LABS: URINE BILIRUBIN NEGATIVE (Negative); URINE BLOOD TRACE (Negative); URINE CLARITY CLEAR; URINE COLOR YELLOW; URINE GLUCOSE-RANDOM* NEGATIVE (Negative); URINE KETONES NEGATIVE (Negative); URINE LEUKOCYTES-REFLEX NEGATIVE (Negative); URINE NITRITE-REFLEX NEGATIVE (Negative); URINE PROTEIN (DIPSTICK) NEGATIVE (Negative); URINE SPECIFIC GRAVITY >= 1.030 (1.005-1.035); URINE UROBILINOGEN 0.2 E.U./dl (0.2-1.0)
== END 2017-08-02 14:43 | disposition home or self-care (01) ==
LOC: ER 11:13
PROVIDERS: Emergency Medicine
DX: R10.11 Right upper quadrant pain (principal); R11.2 Nausea with vomiting, unspecified; M54.2 Cervicalgia; J45.909 Unspecified asthma, uncomplicated; I10 Essential (primary) hypertension; Z88.5 Allergy status to narcotic agent; F17.210 Nicotine dependence, cigarettes, uncomplicated

== ENCOUNTER 2017-09-19 07:34 | Emergency (ER) | payer OTHER, BC ==
[~2017-09-19] VITALS: Ht 165.1 cm; Wt 72.6 kg
[~2017-09-19 07:34] MED LIST changes: +BENTYL 20 MG TA20 M1 PO; +ZOFRAN ODT4 MG PO
[2017-09-19] MEDS ORDERED: VENTOLIN HFA 1818 GM INH (07:45)
[2017-09-19] MEDS ORDERED: MOBIC15 MG PO (09:41)
[2017-09-19] MEDS ORDERED: VALIUM5 MG PO (09:41)
[2017-09-19] MEDS ORDERED: NORCO 5-325 TA1 EACH PO (09:41)
== END 2017-09-19 10:44 | disposition home or self-care (01) ==
LOC: ER 07:34
DX: S29.012A Strain of muscle and tendon of back wall of thorax, initial encounter (principal); M54.14 Radiculopathy, thoracic region; I10 Essential (primary) hypertension; J45.909 Unspecified asthma, uncomplicated; Z90.722 Acquired absence of ovaries, bilateral; F17.210 Nicotine dependence, cigarettes, uncomplicated; Z88.5 Allergy status to narcotic agent; W03.XXXA Other fall on same level due to collision with another person, initial encounter; Y93.89 Activity, other specified; Y92.89 Other specified places as the place of occurrence of the external cause; Y99.8 Other external cause status

== ENCOUNTER 2017-10-30 09:03 | Emergency (ER) | payer OTHER ==
[~2017-10-30] VITALS: Ht 165.1 cm; Wt 71.2 kg
--- NOTE | ~2017-10-30 | EKG ---
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
[~2017-10-30 09:03] MED LIST changes: +MOBIC15 MG PO; +NORCO 5-325 TA1 EACH PO; +VALIUM5 MG PO; +VENTOLIN HFA 1818 GM INH
[2017-10-30] MEDS ORDERED: CHILDREN'S ASPI81 M1 PO (09:14)
[2017-10-30] MEDS ORDERED: OXYCODONE HCL 55 MG PO (09:15)
[2017-10-30 09:58] LABS: BASOPHILS 0.3 % (0.0-2.0); HEMATOCRIT 39.7 % (37.0-47.0); HEMOGLOBIN 14.1 gm/dL (12.0-15.0); LYMPHOCYTES 28.9 % (24.0-44.0); MCH 30.9 pg (26.0-34.0); MCHC 35.5 g/dL (28.0-37.0); MONOCYTES 9.2 % (1.0-8.0); PLATELET COUNT 194 thou/uL (150-400); POLYS 58.6 % (36.0-66.0); RBC 4.57 mil/uL (4.20-5.00); RDW 13.2 % (10.5-14.5); WBC 6.8 thou/uL (4.0-11.0)
[2017-10-30 10:10] LABS: ANION GAP 10 mmol/L (7-16); BUN 14 mg/dL (7-18); CALCIUM 9.8 mg/dL (8.5-10.1); CHLORIDE 106 mmol/L (98-107); CO2 26 mmol/L (21-32); CREATININE 0.8 mg/dL (0.6-1.0); GLUCOSE 98 mg/dL (74-106); POTASSIUM 3.3 mmol/L (3.5-5.1); SODIUM 142 mmol/L (136-145)
[2017-10-30 10:19] LABS: ALBUMIN 3.9 g/dL (3.4-5.0); SGOT 16 U/L (15-37); SGPT 31 U/L (30-65); TOTAL BILIRUBIN 0.8 mg/dL (<0.1-1.0); TOTAL PROTEIN 7.6 g/dL (6.4-8.2); TROPONIN-I < 0.04 ng/mL (<0.06)
[2017-10-30] MEDS ORDERED: TOPROL XL25 MG PO (12:19)
[2017-10-30] MEDS ORDERED: BUTALB-APAP-CA1 EACH PO (12:20)
== END 2017-10-30 12:35 | disposition home or self-care (01) ==
LOC: ER 09:03
PROVIDERS: Physician Assistant
DX: R07.9 Chest pain, unspecified (principal); R51 Headache; R42 Dizziness and giddiness; J45.909 Unspecified asthma, uncomplicated; I10 Essential (primary) hypertension; F17.210 Nicotine dependence, cigarettes, uncomplicated; Z90.722 Acquired absence of ovaries, bilateral; Z88.5 Allergy status to narcotic agent

== ENCOUNTER 2017-12-26 11:23 | Emergency (ER) | payer OTHER ==
[~2017-12-26] VITALS: Ht 165.1 cm; Wt 70.3 kg
[~2017-12-26 11:23] MED LIST changes: +BUTALB-APAP-CA1 EACH PO; +CHILDREN'S ASPI81 M1 PO; +OXYCODONE HCL 55 MG PO; +TOPROL XL25 MG PO
[2017-12-26] MEDS ORDERED: COZAAR 25 MG TA25 M1 PO (11:33)
[2017-12-26] MEDS ORDERED: COLACE100 MG PO (11:36)
[2017-12-26] MEDS ORDERED: DIAZEPAM 10 MG10 M2 PO (11:37)
[2017-12-26 11:59] LABS: URINE BILIRUBIN NEGATIVE (Negative); URINE BLOOD NEGATIVE (Negative); URINE CLARITY CLEAR; URINE COLOR YELLOW; URINE GLUCOSE-RANDOM* NEGATIVE (Negative); URINE KETONES NEGATIVE (Negative); URINE LEUKOCYTES-REFLEX NEGATIVE (Negative); URINE NITRITE-REFLEX NEGATIVE (Negative); URINE PROTEIN (DIPSTICK) NEGATIVE (Negative); URINE UROBILINOGEN 0.2 E.U./dl (0.2-1.0)
[2017-12-26] MEDS ORDERED: FLEXERIL PO (12:48)
[2017-12-26] MEDS ORDERED: OXYCODONE HCL 55 MG PO (12:48)
== END 2017-12-26 13:00 | disposition home or self-care (01) ==
LOC: ER 11:23
PROVIDERS: Student in an Organized Health Care Education/Training Program
DX: M54.41 Lumbago with sciatica, right side (principal); R32 Unspecified urinary incontinence; J45.909 Unspecified asthma, uncomplicated; I10 Essential (primary) hypertension; F17.210 Nicotine dependence, cigarettes, uncomplicated; Z88.5 Allergy status to narcotic agent; Z90.722 Acquired absence of ovaries, bilateral

== ENCOUNTER 2018-08-13 10:58 | Emergency (ER) | payer OTHER ==
[~2018-08-13] VITALS: Ht 165.1 cm; Wt 74.8 kg
[~2018-08-13 10:58] MED LIST changes: +COLACE100 MG PO; +COZAAR 25 MG TA25 M1 PO; +DIAZEPAM 10 MG10 M2 PO; +FLEXERIL PO
[2018-08-13 11:19] LABS: URINE BILIRUBIN NEGATIVE (Negative); URINE BLOOD NEGATIVE (Negative); URINE CLARITY CLEAR; URINE COLOR YELLOW; URINE GLUCOSE-RANDOM* NEGATIVE (Negative); URINE KETONES NEGATIVE (Negative); URINE LEUKOCYTES-REFLEX NEGATIVE (Negative); URINE NITRITE-REFLEX NEGATIVE (Negative); URINE PROTEIN (DIPSTICK) NEGATIVE (Negative); URINE SPECIFIC GRAVITY >= 1.030 (1.005-1.035); URINE UROBILINOGEN 0.2 E.U./dl (0.2-1.0)
[2018-08-13] MEDS ORDERED: MIRALAX17 GM PO (11:20)
[2018-08-13 12:03] LABS: ABSOLUTE NEUTROPHILS 3.5 thou/uL (1.4-8.2); BASOPHILS 0.4 % (0.0-2.0); EOSINOPHILS 2.5 % (0.0-3.0); HEMATOCRIT 36.6 % (37.0-47.0); MCH 31.5 pg (26.0-34.0); MCHC 35.7 g/dL (28.0-37.0); MCV 88.2 fL (80.0-100.0); PLATELET COUNT 208 thou/uL (150-400); POLYS 49.1 % (36.0-66.0); RBC 4.15 mil/uL (4.20-5.00); RDW 13.2 % (10.5-14.5)
[2018-08-13 12:11] LABS: CALCIUM 9.3 mg/dL (8.5-10.1); CREATININE 0.8 mg/dL (0.6-1.0); POTASSIUM 3.5 mmol/L (3.5-5.1)
[2018-08-13 12:17] LABS: ALBUMIN 4.2 g/dL (3.4-5.0); TOTAL BILIRUBIN 0.6 mg/dL (<0.1-1.0); TOTAL PROTEIN 7.4 g/dL (6.4-8.2)
[2018-08-13] MEDS ORDERED: BENTYL 20 MG TA20 M1 PO (14:27)
[2018-08-13] MEDS ORDERED: MOBIC15 MG PO (14:27)
[2018-08-13 14:29] VITALS: BP 135/71
--- NOTE | 2018-08-14 16:59 | EKG ---
[address] [address] [facility] [place] [address] ELECTROCARDIOGRAM REPORT Name: EMILY HOOD 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 : 1965 Requested By: Davina Escamilla Order Number: [id number] MD: Solitario Rudolph Measurements Intervals [place] Rate: 52 P: 44 SC: 181 QRS: 21 QRSD: 87 T: 56 QT: 428 QTc: 398 Interpretive Statements Sinus rhythm Borderline T wave abnormalities Compared to ECG 10/30/2017 09:12:48 T-wave abnormality now present Electronically Signed On 08-14-2018 16:59:04 CDT by Solitario Rudolph [email or web address] ��������������������������������������������� <ELECTRONICALLY SIGNED> ���������������������������������������� By: Solitario Rudolph MD, [facility] ��������������������������������������������� 08/14/18 1659 1404 1404 Solitario Rudolph MD, FACC /EPI
== END 2018-08-13 14:34 | disposition home or self-care (01) ==
LOC: ER 10:58
PROVIDERS: Physician Assistant
DX: R10.11 Right upper quadrant pain (principal); R11.2 Nausea with vomiting, unspecified; J45.909 Unspecified asthma, uncomplicated; I10 Essential (primary) hypertension; F17.210 Nicotine dependence, cigarettes, uncomplicated; Z88.5 Allergy status to narcotic agent

== ENCOUNTER 2019-01-31 05:17 | Emergency (ER) | payer OTHER ==
[~2019-01-31] VITALS: Ht 165.1 cm; Wt 74.8 kg
[~2019-01-31 05:17] MED LIST changes: +MIRALAX17 GM PO
[2019-01-31 06:04] LABS: ABSOLUTE NEUTROPHILS 2.9 thou/uL (1.4-8.2); BASOPHILS 0.5 % (0.0-2.0); HEMATOCRIT 40.6 % (37.0-47.0); HEMOGLOBIN 13.8 gm/dL (12.0-15.0); LYMPHOCYTES 36.4 % (24.0-44.0); MCH 30.8 pg (26.0-34.0); MCV 90.6 fL (80.0-100.0); PLATELET COUNT 102 thou/uL (150-400); POLYS 52.1 % (36.0-66.0); RBC 4.49 mil/uL (4.20-5.00); RDW 12.7 % (10.5-14.5); WBC 5.5 thou/uL (4.0-11.0)
[2019-01-31 06:07] LABS: URINE BILIRUBIN NEGATIVE (Negative); URINE BLOOD NEGATIVE (Negative); URINE CLARITY CLEAR; URINE COLOR YELLOW; URINE GLUCOSE-RANDOM* NEGATIVE (Negative); URINE KETONES NEGATIVE (Negative); URINE LEUKOCYTES-REFLEX NEGATIVE (Negative); URINE NITRITE-REFLEX NEGATIVE (Negative); URINE PROTEIN (DIPSTICK) NEGATIVE (Negative); URINE SPECIFIC GRAVITY 1.025 (1.005-1.035)
[2019-01-31 06:15] LABS: AMP/METHAMP Negative (Negative); BARBITURATES Negative (Negative); BENZODIAZEPINES POSITIVE (Negative); COCAINE Negative (Negative); METHADONE Negative (Negative); OPIATES Negative (Negative); PCP Negative (Negative)
[2019-01-31 06:21] LABS: ANION GAP 11 mmol/L (7-16); BUN 13 mg/dL (7-18); CALCIUM 9.5 mg/dL (8.5-10.1); CHLORIDE 104 mmol/L (98-107); CO2 24 mmol/L (21-32); CREATININE 0.9 mg/dL (0.6-1.0); GLUCOSE 108 mg/dL (74-106); POTASSIUM 3.7 mmol/L (3.5-5.1); SODIUM 139 mmol/L (136-145)
[2019-01-31 06:27] LABS: ALBUMIN 4.1 g/dL (3.4-5.0); DIRECT BILIRUBIN < 0.1 mg/dL (<0.1-0.3); LIPASE 154 U/L (73-393); SGOT 24 U/L (15-37); SGPT 22 U/L (30-65); TOTAL BILIRUBIN 0.7 mg/dL (<0.1-1.0); TOTAL PROTEIN 7.6 g/dL (6.4-8.2)
[2019-01-31] MEDS ORDERED: CYMBALTA20 MG (06:44)
[2019-01-31] MEDS ORDERED: KEPPRA 500 MG500 M1 PO (06:45)
[2019-01-31] MEDS ORDERED: ZOFRAN ODT4 MG PO (07:38)
[2019-01-31 07:47] VITALS: BP 131/58
== END 2019-01-31 07:50 | disposition home or self-care (01) ==
LOC: ER 05:17
PROVIDERS: Emergency Medicine
DX: G40.89 Other seizures (principal); R10.9 Unspecified abdominal pain; J45.909 Unspecified asthma, uncomplicated; I10 Essential (primary) hypertension; Z90.49 Acquired absence of other specified parts of digestive tract; Z88.5 Allergy status to narcotic agent; Z90.721 Acquired absence of ovaries, unilateral

== ENCOUNTER 2019-08-20 10:40 | Emergency (ER) | payer OTHER ==
[~2019-08-20] VITALS: Ht 165.1 cm; Wt 74.8 kg
[~2019-08-20 10:40] MED LIST changes: +CYMBALTA20 MG; +KEPPRA 500 MG500 M1 PO
[2019-08-20] MEDS ORDERED: VALIUM10 MG PO (11:02)
[2019-08-20 12:13] LABS: ABSOLUTE NEUTROPHILS 3.9 thou/uL (1.4-8.2); BASOPHILS 0.5 % (0.0-2.0); HEMATOCRIT 40.1 % (37.0-47.0); HEMOGLOBIN 13.6 gm/dL (12.0-15.0); LYMPHOCYTES 32.4 % (24.0-44.0); MCH 30.3 pg (26.0-34.0); MCHC 33.8 g/dL (28.0-37.0); MCV 89.6 fL (80.0-100.0); MONOCYTES 9.3 % (1.0-8.0); PLATELET COUNT 219 thou/uL (150-400); POLYS 54.8 % (36.0-66.0); RBC 4.47 mil/uL (4.20-5.00); RDW 13.5 % (10.5-14.5); WBC 7.1 thou/uL (4.0-11.0)
[2019-08-20 12:19] LABS: ANION GAP 4 mmol/L (7-16); BUN 11 mg/dL (7-18); CALCIUM 9.9 mg/dL (8.5-10.1); CHLORIDE 104 mmol/L (98-107); CO2 31 mmol/L (21-32); CREATININE 0.9 mg/dL (0.6-1.0); GLUCOSE 83 mg/dL (74-106); POTASSIUM 4.1 mmol/L (3.5-5.1); SODIUM 139 mmol/L (136-145)
[2019-08-20 12:30] LABS: ALBUMIN 4.2 g/dL (3.4-5.0); LIPASE 121 U/L (73-393); SGOT 15 U/L (15-37); SGPT 27 U/L (30-65); TOTAL BILIRUBIN 0.6 mg/dL (<0.1-1.0); TOTAL PROTEIN 7.3 g/dL (6.4-8.2); TROPONIN-I <0.06 ng/mL (<0.06)
--- NOTE | 2019-08-20 12:34 | EKG ---
[facility] [place] [address] ELECTROCARDIOGRAM REPORT Name: EMILY HOOD Room #: REG [facility]#: [id number] Admission: 08/20/19 Attend Phys: Discharge: Date of : 65 Report #: [id number] THIS REPORT FOR: cc: Acosta Anderson MD, Neal A. MD Couchonnal, Luis F. 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 : 1965 Requested By: Davina Escamilla Order Number: [id number] MD: Denis Ojeda Measurements Intervals [place] Rate: 67 P: 43 W[place]: 155 QRS: 16 QRSD: 84 T: 46 QT: 398 QTc: 420 Interpretive Statements Sinus rhythm Low voltage, precordial leads Abnormal R-wave progression, early transition Borderline T abnormalities, anterior leads Baseline wander in lead(s) V1,V2 Compared to ECG 08/13/2018 14:04:46 Low QRS voltage now present T-wave abnormality still present Electronically Signed On 08-20-2019 12:33:02 CDT by Denis Ojeda [email or web address] <ELECTRONICALLY SIGNED> By: Denis Ojeda MD 08/20/19 1233 1133 1133 Denis Ojeda MD /EPI
[2019-08-20 12:50] LABS: URINE BILIRUBIN NEGATIVE (Negative); URINE BLOOD NEGATIVE (Negative); URINE CLARITY CLEAR; URINE COLOR YELLOW; URINE GLUCOSE-RANDOM* NEGATIVE (Negative); URINE KETONES NEGATIVE (Negative); URINE LEUKOCYTES-REFLEX NEGATIVE (Negative); URINE NITRITE-REFLEX NEGATIVE (Negative); URINE PROTEIN (DIPSTICK) NEGATIVE (Negative); URINE SPECIFIC GRAVITY <= 1.005 (1.005-1.035); URINE UROBILINOGEN 0.2 E.U./dl (0.2-1.0)
[2019-08-20] MEDS ORDERED: PHENERGAN 25 MG25 M1 PO (13:14)
[2019-08-20 13:27] VITALS: BP 102/64
== END 2019-08-20 13:27 | disposition home or self-care (01) ==
LOC: ER 10:40
PROVIDERS: Physician Assistant
DX: R11.2 Nausea with vomiting, unspecified (principal); R07.89 Other chest pain; R51 Headache; F17.210 Nicotine dependence, cigarettes, uncomplicated; I10 Essential (primary) hypertension; J45.909 Unspecified asthma, uncomplicated; Z90.49 Acquired absence of other specified parts of digestive tract; Z79.899 Other long term (current) drug therapy; Z88.5 Allergy status to narcotic agent

== ENCOUNTER 2021-06-20 10:44 | Emergency (ER) | payer OTHER ==
[~2021-06-20] VITALS: Ht 165.1 cm; Wt 74.8 kg
[~2021-06-20 10:44] MED LIST changes: +PHENERGAN 25 MG25 M1 PO; +VALIUM10 MG PO
[2021-06-20] MEDS ORDERED: FLEXERIL PO (12:52)
== END 2021-06-20 13:50 | disposition home or self-care (01) ==
LOC: ER 10:44
DX: M54.32 Sciatica, left side (principal); J45.909 Unspecified asthma, uncomplicated; F17.210 Nicotine dependence, cigarettes, uncomplicated; I10 Essential (primary) hypertension; Z90.49 Acquired absence of other specified parts of digestive tract; Z98.890 Other specified postprocedural states; Z79.899 Other long term (current) drug therapy; Z88.5 Allergy status to narcotic agent